=== PATIENT | female | born 1930 | race Caucasian/White ===

== ENCOUNTER 2017-12-13 15:07 | Emergency (ER) | payer OTHER ==
[~2017-12-13] VITALS: Ht 154.9 cm; Wt 68.0 kg
[~2017-12-13 15:07] MED LIST: ALL100 PO; ATEN50TA PO; FRS/40 PO; MECL25TA2 PO; POTA-335 PO; RANI300T2 PO; SIMV40TA2 PO; SULF-302 PO; ZLF/50 PO
[2017-12-13 15:30] VITALS: Ht 154.9 cm; Wt 68.0 kg
--- NOTE | 2017-12-13 16:44 | DIAGNOSTIC IMAGING REPORT ---
L FOREARM 2 VIEWS ROUTINE, L HUMERUS MIN 2 VIEWS ROUTINE HISTORY: 87 years-old Female left arm pain s/p fall acute left arm pain status post fall COMPARISON: None available TECHNIQUE: 2 views of the left forearm and 2 views of the left humerus FINDINGS: FOREARM: Moderate bone demineralization limits evaluation for acute nondisplaced fracture. Chondrocalcinosis about the wrist with moderate severe radiocarpal joint space narrowing, remodeling and marginal spurring. Severe intercarpal degenerative changes. Distal radius appears intact. Ill-defined subtle lucency involving the lateral aspect of the radial head. Ulna appears intact. HUMERUS: Left shoulder arthroplasty with satisfactory alignment. No acute fracture or dislocation identified. Remote appearing fracture of the posterior left fifth rib. IMPRESSION: 1. Ill-defined subtle lucency involves the lateral aspect of the radial head, possibly reflecting an acute nondisplaced fracture or normal trabecular markings. Correlate with point tenderness. 2. No acute displaced fracture identified. 3. Severe degenerative changes about the radiocarpal joint and carpus with chondrocalcinosis. 4. Osteoporotic appearance of the bones. The above report was generated using voice recognition software. It may contain grammatical, syntax or spelling errors. Electronically signed by: Doni Back M.D. 12/13/2017 4:42 PM Dictated Date/Time: 12/13/2017 4:39 PM
[2017-12-13] MEDS ORDERED: CLR/5 PO (16:58)
[2017-12-13] MEDS ORDERED: SIMV40TA2 PO (16:58)
[2017-12-13] MEDS ORDERED: SULF800T23 PO (16:58)
[2017-12-13] MEDS ORDERED: DTR5 PO (16:58)
[2017-12-13] MEDS ORDERED: SERT-234 PO (16:58)
[2017-12-13] MEDS ORDERED: TRAZ50TA35 PO (16:58)
[2017-12-13] MEDS ORDERED: POTA-639 PO (16:58)
[2017-12-13] MEDS ORDERED: ALLO100T PO (16:58)
[2017-12-13] MEDS ORDERED: RANI150T85 PO (16:58)
[2017-12-13] MEDS ORDERED: NAPR-1221 PO (16:58)
[2017-12-13] MEDS ORDERED: LATA0.5S OP (16:58)
--- NOTE | 2017-12-13 17:08 | EMERGENCY ROOM VISIT NOTE ---
ED Visit Note First contact with patient: 15:35 CHIEF COMPLAINT: Left elbow pain HISTORY OF PRESENT ILLNESS: This 87-year-old female patient presents to the emergency department, ambulatory, with her son, complaining of pain in the left elbow, from the mid humerus to the wrist. The patient states yesterday, she fell straight down, landing on her buttocks after noticing a mouse run over her foot. She states she then fell backwards, onto her left elbow. She denies any head injury. She denies any pain in her buttocks or hips. She has been ambulatory since the injury. She has had ongoing pain in the left arm since yesterday, and has taken no medications. The patient rates their pain as sharp and 8/10. The patient reports pain with any attempts to move her elbow. The patient has not had previous fractures to this elbow. The patient does not have any numbness or tingling. The patient denies any other injuries. She denies any chest pain or dyspnea. She does report some mild edema in her bilateral hands, and states she has not taken her Lasix today. REVIEW OF SYSTEMS: A 6 system review of systems was completed with positives and pertinent negatives listed in the HPI. ALLERGIES: Aspirin, codeine, gentamicin, morphine, penicillin, sulfa PMH: Gout, hypertension, heart failure, GERD SOCIAL HISTORY: The patient lives locally with family. She denies drug, alcohol , tobacco use. PHYSICAL EXAM: Vital Signs: Reviewed Nurse's notes, vital signs stable, however pt. refused BP check. GENERAL: This is an 87-year-old white female, in no acute distress, well-developed, well-nourished. SKIN: The skin was without rashes, erythema, edema, warmth, or bruising. Capillary reflex less than 3 seconds. MUSCULOSKELETAL: The patient is holding their elbow in a flexed position. There is no tenderness on palpation of the left upper extremity. There is tenderness with flexion and full extension of the left elbow joint. There is no tenderness of the shoulder, wrist, or hand. The patient is able to give a thumbs up, make an OK sign, and a #3 with their fingers. Radial pulse 2+ . There is no tenderness of the pelvis on palpation. The patient is ambulating normally for her, per her family members. There is no tenderness with ambulation. Good mobility of the hips on examination. Pedal pulse 2+. No tenderness of the chest wall on examination. NEURO: Patient was alert and oriented to person place and time. Normal sensation to light and sharp touch. LUNGS: CTA bilaterally. No wheezes, rhonchi, or rales. RADIOLOGY: L FOREARM 2 VIEWS ROUTINE, L HUMERUS MIN 2 VIEWS ROUTINE HISTORY: 87 years-old Female left arm pain s/p fall acute left arm pain status post fall COMPARISON: None available TECHNIQUE: 2 views of the left forearm and 2 views of the left humerus FINDINGS: FOREARM: Moderate bone demineralization limits evaluation for acute nondisplaced fracture. Chondrocalcinosis about the wrist with moderate severe radiocarpal joint space narrowing, remodeling and marginal spurring. Severe intercarpal degenerative changes. Distal radius appears intact. Ill-defined subtle lucency involving the lateral aspect of the radial head. Ulna appears intact. HUMERUS: Left shoulder arthroplasty with satisfactory alignment. No acute fracture or dislocation identified. Remote appearing fracture of the posterior left fifth rib. IMPRESSION: 1. Ill-defined subtle lucency involves the lateral aspect of the radial head, possibly reflecting an acute nondisplaced fracture or normal trabecular markings. Correlate with point tenderness. 2. No acute displaced fracture identified. 3. Severe degenerative changes about the radiocarpal joint and carpus with chondrocalcinosis. 4. Osteoporotic appearance of the bones. The above report was generated using voice recognition software. It may contain grammatical, syntax or spelling errors. Electronically signed by: Doni Back M.D. 12/13/2017 4:42 PM Dictated Date/Time: 12/13/2017 4:39 PM EMERGENCY DEPARTMENT COURSE: I examined the patient. Because of her discomfort radiating from the mid humerus to the wrist, x-rays of the humerus and forearm were performed. An x-ray of the left humerus and forearm elbow was reviewed myself and read by radiology and shows a lucency in the lateral aspect of the radial head, possibly indicating a fracture. The patient was placed in a posterior long arm Ortho-Glass splint under my direction and the position was satisfactory. The patient was given an arm sling. Neurovascular status was rechecked and intact. I did discuss the findings of x-ray with the patient and her family at bedside. I discussed the possible rib fracture noted on humerus film. The patient denies any striking of her ribs or side of her chest with this fall. She denies any pain or dyspnea. The patient does recall striking her left lateral chest on against a door when she was walking outside and got blown by the wind. This occurred several months ago. The patient denies any further pain or injury. The family would like to go to the [facility] walk-in clinic this evening after leaving the ED. The patient was discharged home in stable condition. I did discuss the case with my attending. We are in agreement with the assessment and plan. I attest that I have personally reviewed the patient's current medication list. Etiologies such as soft tissue injury, fracture, dislocation, neurovascular compromise, compartment syndrome, as well as others were entertained. DIAGNOSIS: Left radial head fracture The chart was completed utilizing [employer] Speech voice recognition software. Grammatical errors, random word insertions, pronoun errors, and incomplete sentences are an occasional consequence of this system due to software limitations, ambient noise, and hardware issues. Any formal questions or concerns about the content, text, or information contained within the body of this dictation should be directly addressed to the provider for clarification. Problem List Medical Problems: (1) Allergic rhinitis Status: Chronic (2) Benign hypertension Status: Chronic (3) Carcinoma of gallbladder Status: Resolved (4) Cholecystectomy Status: Resolved (5) Chronic kidney disease stage 3 Status: Chronic (6) Dyslipidemia Status: Chronic (7) Gastroesophageal reflux disease Status: Chronic (8) GENERAL OSTEOARTHROSIS Status: Chronic Current/Historical Medications Scheduled Allopurinol (Zyloprim), 100 MG PO DAILY Atenolol (Tenormin), 50 MG PO DAILY Desloratadine (Clarinex), 5 MG PO DAILY Furosemide (Lasix), 40 MG PO DAILY Latanoprost (Xalatan 0.005% Oph Jen), 1 DROPS OP HS Naproxen (Naproxen), 375 MG PO BID Oxybutynin Chloride (Oxybutynin Chloride), 5 MG PO DAILY Potassium Ext Rel (Klor-Con), 20 MEQ PO TID Ranitidine (Zantac), 300 MG PO BID Sertraline (Zoloft), 100 MG PO DAILY Simvastatin (Zocor), 40 MG PO QPM Sulfa/Trimethoprim (Bactrim Ds 800MG/160MG), 1 TAB PO BID Trazodone Hcl (Trazodone), 50 MG PO HS Allergies Coded Allergies: Aspirin (Verified Allergy, Severe, 10/09/09) SALICYLATES-HIVES;HOWEVER CAN TAKE IBUPROFEN W/O PROBLEM-PER PT. Penicillins (Verified Allergy, Severe, 10/09/09) SWELLING Sulfa Drugs (Verified Allergy, Intermediate, 10/09/09) HIVES Codeine (Verified Allergy, Unknown, 10/09/09) Gentamicin (Verified Allergy, Unknown, 10/09/09) Morphine (Unverified Allergy, Unknown, 10/09/09) Vital Signs Date Time Temp Pulse Resp B/P (MAP) Pulse Ox O2 Delivery O2 Flow Rate FiO2 12/13/17 15:30 36.8 74 20 100 Room Air Departure Information Impression Primary Impression: Fall Additional Impression: Radial head fracture, closed Dispostion Home / Self-Care Condition GOOD Referrals Ciara Chow (PCP) Nick Rubio MD Patient Instructions ED Fx Radial Head, My [facility] Additional Instructions ORTHOPEDIC INSTRUCTIONS: You were seen today for left elbow pain. There is suspicion for radial head fracture based on x-ray. Acetaminophen(Tylenol) may be used for fever or pain. Use 650-1000mg every six hours as needed. Avoid using more than 4000mg in a 24 hour period. Ice compresses for 20 minutes at a time four times daily for 2-3 days. Use the crutches as instructed. Use the sling as instructed. Remove your arm from the sling 4-6 times a day and move all the joints around to keep them loose. Rest and elevate your injury. Monitor for any dyspnea or rib pain, as there was question of possible rib fracture on humerus x-ray. Do not get the splint wet. If your splint feels excessively tight, you have worsening pain, develop numbness or tingling, or your digits appear blue, loosen the carlos eduardo wrap. Then reapply the carlos eduardo wrap gently without removing the splint. If your symptoms are not quickly relieved return to the ER for re- evaluation. Return to the ER immediately for any numbness, tingling, severe pain, extreme swelling in the extremity or as needed. Call [facility], [phone], [facility] to arrange follow up for your injury. You may consider going to the walk-in clinic if desired. Follow-up with your primary care physician in 2 to 3 days for a recheck of your current condition. Problem Qualifiers Primary Impression: Fall Encounter type: initial encounter Qualified Codes: W19.XXXA - Unspecified fall, initial encounter Additional Impression: Radial head fracture, closed Encounter type: initial encounter Fracture alignment: nondisplaced Laterality: left Qualified Codes: S52.125A - Nondisplaced fracture of head of left radius, initial encounter for closed fracture
[2017-12-13 17:47] VITALS: PULSE 74; TEMP 36.8; O2SAT 100
--- NOTE | 2017-12-14 05:10 | EMERGENCY ROOM VISIT NOTE ---
ED Visit Note First contact with patient: 15:35 I reviewed the patient's past medical history, medications, and visit nursing notes. I discussed the case with the physician temporary administrative assistant, examined the patient, and agree with the findings and plan as documented in the physician assistants note.
== END 2017-12-13 17:48 | disposition home or self-care (01) ==
LOC: C.EDB 15:08 → C.EDD 17:48
DX: S52.125A Nondisplaced fracture of head of left radius, initial encounter for closed fracture (principal); W19.XXXA Unspecified fall, initial encounter; Z88.5 Allergy status to narcotic agent; Z88.0 Allergy status to penicillin; Z88.2 Allergy status to sulfonamides; M10.9 Gout, unspecified; I10 Essential (primary) hypertension; I50.9 Heart failure, unspecified; K21.9 Gastro-esophageal reflux disease without esophagitis; N18.3 Chronic kidney disease, stage 3 (moderate); E78.5 Hyperlipidemia, unspecified